=== PATIENT | male | born 1965 | race Caucasian/White ===

== ENCOUNTER 2024-01-26 11:43 | Inpatient (IN) | payer BC, MEDICAID, OTHER ==
[2024-01-26] MEDS ORDERED: Ketorolac Tromethamine 30 MG (1 mL) VIAL ONE (13:26)
[2024-01-26] MEDS ORDERED: Acetaminophen 500 MG TAB ONE (13:29)
[2024-01-26] MEDS ORDERED: Dexamethasone 10 MG/ML VIAL ONE (18:04)
[2024-01-26 18:29] LABS: #Basophils Less than 0.03 10x3/uL (0.0-0.2); %Basophils 0.3 % (0.0-1.0); %Eosinophils 0.8 % (0.0-10.0); %Lymphocytes 21.7 % (21.0-51.0); %Neutrophils 67.9 % (42.0-75.0); Hematocrit 45.2 % (42.0-52.0); Hemoglobin 15.5 g/dL (14.0-18.0); Mean Corpuscular HGB CONC 34.3 g/dL (32.0-36.0); Mean Corpuscular Hemoglobin 30.9 pg (27.0-31.0); Mean Corpuscular Volume 90.2 fL (78.0-98.0); Mean Platelet Volume 8.8 fL (7.4-10.4); Platelet Count 291 10x3/uL (130-400); RBC Distribution Width 11.3 % (11.5-14.5); Red Blood Cell (RBC) Count 5.01 mill/uL (4.70-6.10)
[2024-01-26 18:49] LABS: ALT (SGPT) 32 U/L (8-55); AST (SGOT) 29 U/L (5-34); Albumin 3.8 g/dL (3.5-5.0); Alkaline Phosphatase 62 U/L (40-110); Anion Gap 13 mmol/L (10-20); BUN (Urea Nitrogen) 11 mg/dL (8.4-25.7); Bilirubin, Total 0.5 mg/dL (0.2-1.2); Calc. Creatinine Clearance 0 mL/min (70-130); Calcium 9.3 mg/dL (7.8-10.44); Carbon Dioxide 23 mmol/L (22-29); Chloride 104 mmol/L (98-107); Estimated GFR 100; Globulin 3.2 g/dL (2.4-3.5); Glucose 87 mg/dL (70-105); Prothrombin Time 13.1 sec (12.0-14.7); Sodium 136 mmol/L (136-145)
[2024-01-26 18:50] LABS: PTT 31.8 sec (22.9-36.1)
[2024-01-26] MEDS ORDERED: Ondansetron PF 4 MG/2 ML Vial IVP PRN ×2 (19:11→21:35)
[2024-01-26] MEDS ORDERED: Ondansetron ODT 4 MG TAB SL PRN (19:11)
[2024-01-26 21:24] VITALS: BMI 27.8
[2024-01-26] MEDS ORDERED: Acetaminophen 325 MG TAB PO PRN (21:35)
[2024-01-26] MEDS ORDERED: Ondansetron ODT 4 MG TAB PO PRN (21:35)
[2024-01-26] MEDS ORDERED: Acetaminophen 650 MG Suppository PR PRN (21:35)
[2024-01-26] MEDS: Dexamethasone 4 mg/ml Vial SLOW IVP SCH (23:52)
[2024-01-27] MEDS: Levothyroxine Sodium 100 MCG TAB PO SCH (04:59)
[2024-01-27 05:26] LABS: #Basophils Less than 0.03 10x3/uL (0.0-0.2); #Eosinphils Less than 0.03 10x3/uL (0.0-0.7); %Basophils 0.2 % (0.0-1.0); %Monocytes 1.6 % (0.0-10.0); %Neutrophils 88.9 % (42.0-75.0); Hematocrit 46.6 % (42.0-52.0); Hemoglobin 15.8 g/dL (14.0-18.0); Mean Corpuscular HGB CONC 33.9 g/dL (32.0-36.0); Mean Corpuscular Hemoglobin 31.7 pg (27.0-31.0); Mean Corpuscular Volume 93.6 fL (78.0-98.0); Mean Platelet Volume 8.8 fL (7.4-10.4); Platelet Count 337 10x3/uL (130-400); RBC Distribution Width 11.4 % (11.5-14.5); Red Blood Cell (RBC) Count 4.98 mill/uL (4.70-6.10)
[2024-01-27 06:01] LABS: Anion Gap 12 mmol/L (10-20); BUN (Urea Nitrogen) 17 mg/dL (8.4-25.7); Calc. Creatinine Clearance 105 mL/min (70-130); Calcium 9.7 mg/dL (7.8-10.44); Carbon Dioxide 25 mmol/L (22-29); Chloride 103 mmol/L (98-107); Estimated GFR 85; Glucose 153 mg/dL (70-105); Potassium 4.7 mmol/L (3.5-5.1); Sodium 135 mmol/L (136-145)
[2024-01-27] MEDS: Famotidine/PF 20 mg/2ml Vial SLOW IVP SCH (08:36)
[2024-01-27] MEDS: Acetaminophen/Codeine 30-300mg Tablet PO PRN (08:41)
[2024-01-27] MEDS: Lisinopril 5 MG TAB PO SCH (08:42)
[2024-01-27] MEDS ORDERED: Vancomycin 1 GM VIAL ONE (08:50)
[2024-01-27] MEDS ORDERED: Thrombin 5000 UNITS/5 ML VIAL ONE (08:50)
[2024-01-27] MEDS ORDERED: Bacitracin Zinc Ointment 30 gm TUBE ONE (08:50)
[2024-01-27] MEDS ORDERED: Sodium Chloride 0.9% 100 ML ONE (09:57)
[2024-01-27] MEDS ORDERED: CEFAZOLIN 2 GM VIAL ONE (09:57)
[2024-01-27 10:07] LABS: Hemoglobin A1c 5.4 % (4.0-6.0)
[2024-01-27] MEDS ORDERED: Hydrocortisone Sod Succ/PF 100 mg/2 ml Vial ONE (10:19)
[2024-01-27] MEDS ORDERED: Magnesium 5 GM/10 ML VIAL ONE (10:27)
[2024-01-27] MEDS ORDERED: Albumin 5% 500 ML ONE (10:27)
[2024-01-27] MEDS ORDERED: Ketamine In 0.9 % NaCl 50 MG/5 ML SYRINGE ONE (10:35)
[2024-01-27] MEDS ORDERED: PROPOFOL 20 ML ONE ×2 (10:35→12:31)
[2024-01-27] MEDS: Famotidine 20 MG TAB PO SCH (10:42)
[2024-01-27] MEDS ORDERED: Midazolam HCl 2 mg/2 ml Vial ONE (10:45)
[2024-01-27] MEDS ORDERED: Fentanyl 250 MCG/5 ML VIAL ONE (10:46)
[2024-01-27] MEDS ORDERED: PHENYLEPHRINE-NS 100 MCG/ML 10 ML SYRINGE ONE ×3 (11:09→13:07)
[2024-01-27] MEDS ORDERED: Vecuronium 10 MG VIAL ONE (11:30)
[2024-01-27] MEDS ORDERED: Promethazine HCl 25 MG/ML VIAL IM PRN ×2 (11:52→14:40)
[2024-01-27] MEDS ORDERED: Ketorolac Tromethamine 30 MG/ML VIAL IVP PRN (11:52)
[2024-01-27] MEDS ORDERED: HYDROmorphone 2 MG/ML VIAL SLOW IVP PRN (11:52)
[2024-01-27] MEDS ORDERED: Ondansetron HCl/PF 4 MG/2 ML Vial IVP PRN (11:52)
[2024-01-27] MEDS ORDERED: fentaNYL PF 100 MCG/2 ML SYRINGE ONE (12:13)
[2024-01-27] MEDS ORDERED: SUGAMMADEX SODIUM 200 MG/2 ML VIAL ONE (12:24)
[2024-01-27] MEDS ORDERED: Ketorolac Tromethamine 30 MG (1 mL) VIAL ONE (12:35)
[2024-01-27] MEDS ORDERED: Dexamethasone 20 MG/5 ML VIAL ONE (12:35)
[2024-01-27] MEDS ORDERED: Ondansetron PF 4 MG/2 ML Vial ONE (12:35)
[2024-01-27] MEDS ORDERED: Lidocaine 2% PF 5 ML VIAL ONE (12:40)
[2024-01-27] MEDS ORDERED: Rocuronium Bromide 10 MG/ML (10ML VIAL) ONE (13:07)
[2024-01-27] MEDS ORDERED: Calcium Chloride 1 GM/10 ML Abboject SYRINGE ONE (13:07)
[2024-01-27] MEDS ORDERED: CEFAZOLIN 1 GM VIAL ONE (14:34)
[2024-01-27] MEDS ORDERED: Naloxone HCl 0.4 mg/ml Vial IV PRN (14:40)
[2024-01-27] MEDS ORDERED: diphenhydrAMINE 50 MG/ML VIAL IVP PRN (14:40)
[2024-01-27] MEDS ORDERED: diphenhydrAMINE 50 MG/ML VIAL IM PRN (14:40)
[2024-01-27] MEDS ORDERED: FENTANYL 500 MCG/10 ML VIAL 2,000 MCG in Sodium Chloride 0.9% 60 ML IV PRN (14:40)
[2024-01-27] MEDS ORDERED: Ondansetron PF 4 MG/2 ML Vial IVP PRN (14:40)
[2024-01-27] MEDS ORDERED: diphenhydrAMINE 25 MG CAP PO PRN (14:40)
[2024-01-27] MEDS ORDERED: Communication Order-Pharmacy FS SCH (14:45)
[2024-01-27] MEDS ORDERED: fentaNYL 50 mcg/mL 1 mL Vial ONE ×2 (14:55→16:00)
[2024-01-27] MEDS: Sodium Chloride 0.9% 1,000 ML IV SCH (15:30)
[2024-01-27] MEDS ORDERED: Polyethylene Glycol 3350 17 GM Packet PO PRN (15:33)
[2024-01-27] MEDS ORDERED: Benzocaine/Menthol 1 LOZ LOZ PO PRN (15:33)
[2024-01-27] MEDS ORDERED: Phenol 177 ML BOT PO PRN (15:33)
[2024-01-27] MEDS: CEFAZOLIN 2 GM in Sodium Chloride 0.9% 100 ML IVPB SCH (21:11)
[2024-01-28 06:23] LABS: #Basophils 0.03 10x3/uL (0.0-0.2); #Eosinphils Less than 0.03 10x3/uL (0.0-0.7); %Basophils 0.2 % (0.0-1.0); %Eosinophils 0.1 % (0.0-10.0); %Lymphocytes 6.7 % (21.0-51.0); %Monocytes 8.3 % (0.0-10.0); %Neutrophils 84.3 % (42.0-75.0); Hematocrit 43.5 % (42.0-52.0); Hemoglobin 14.4 g/dL (14.0-18.0); Mean Corpuscular HGB CONC 33.1 g/dL (32.0-36.0); Mean Corpuscular Volume 93.8 fL (78.0-98.0); Mean Platelet Volume 8.7 fL (7.4-10.4); Platelet Count 310 10x3/uL (130-400); RBC Distribution Width 11.5 % (11.5-14.5); Red Blood Cell (RBC) Count 4.64 mill/uL (4.70-6.10)
[2024-01-28 06:40] LABS: Anion Gap 11 mmol/L (10-20); BUN (Urea Nitrogen) 18 mg/dL (8.4-25.7); Calc. Creatinine Clearance 96 mL/min (70-130); Calcium 8.9 mg/dL (7.8-10.44); Carbon Dioxide 27 mmol/L (22-29); Chloride 104 mmol/L (98-107); Estimated GFR 76; Glucose 132 mg/dL (70-105); Magnesium 2.4 mg/dL (1.6-2.6); Potassium 4.1 mmol/L (3.5-5.1); Sodium 138 mmol/L (136-145)
[2024-01-28 06:45] LABS: Prothrombin Time 12.7 sec (12.0-14.7)
[2024-01-28 06:46] LABS: PTT 26.1 sec (22.9-36.1)
[2024-01-28] MEDS: tiZANidine HCl 4 MG TAB PO PRN (08:45)
[2024-01-28] MEDS ORDERED: Morphine 2 MG/ML VIAL SLOW IVP PRN (10:12)
[2024-01-28] MEDS: Senokot S 8.6-50 MG TAB PO SCH (14:07)
[2024-01-28] MEDS: HYDROcodone/Acetaminophen 5/325 mg Tablet PO PRN (20:03)
[2024-01-28] MEDS: Docusate 100 MG CAP PO SCH (20:06)
[2024-01-29] MEDS: Diazepam 5 MG TAB PO PRN (02:54)
[2024-01-29 06:54] LABS: Anion Gap 13 mmol/L (10-20); BUN (Urea Nitrogen) 9 mg/dL (8.4-25.7); Calc. Creatinine Clearance 122 mL/min (70-130); Calcium 9.3 mg/dL (7.8-10.44); Carbon Dioxide 25 mmol/L (22-29); Chloride 102 mmol/L (98-107); Estimated GFR 101; Glucose 118 mg/dL (70-105); Magnesium 2.1 mg/dL (1.6-2.6); Potassium 4.4 mmol/L (3.5-5.1); Sodium 136 mmol/L (136-145)
[2024-01-29] MEDS: hydrALAZINE 20 MG/ML VIAL SLOW IVP PRN (09:00)
[2024-01-29] MEDS: Morphine 4 MG/ML VIAL SLOW IVP SCH (10:19)
[2024-01-30] MEDS: HYDROcodone/Acetaminophen 5/325 mg Tablet PO PRN (02:41)
[2024-01-30 06:15] LABS: Anion Gap 10 mmol/L (10-20); BUN (Urea Nitrogen) 13 mg/dL (8.4-25.7); Calc. Creatinine Clearance 117 mL/min (70-130); Calcium 9.5 mg/dL (7.8-10.44); Carbon Dioxide 26 mmol/L (22-29); Chloride 102 mmol/L (98-107); Estimated GFR 96; Glucose 107 mg/dL (70-105); Magnesium 2.1 mg/dL (1.6-2.6); Potassium 4.3 mmol/L (3.5-5.1); Sodium 134 mmol/L (136-145)
[2024-01-30 13:29] VITALS: BP 148/83; TEMP 97.7
== END 2024-01-30 16:21 | disposition home or self-care (01) | DRG 454 ==
LOC: ERS 11:43 → SURG B 19:43 → OBSVTOIN 01-27 15:35
PROVIDERS: ADMIT Student in an Organized Health Care Education/Training Program; ATTEND Hospitalist
PROC: 0RG10A0 Fusion of Cervical Vertebral Joint with Interbody Fusion Device, Anterior Approach, Anterior Column, Open Approach (ICD-10-PCS; principal; 2024-01-27)
PROC: 0RG1071 Fusion of Cervical Vertebral Joint with Autologous Tissue Substitute, Posterior Approach, Posterior Column, Open Approach (ICD-10-PCS; 2024-01-27)
PROC: 01N10ZZ Release Cervical Nerve, Open Approach (ICD-10-PCS; 2024-01-27)
PROC: 00NW0ZZ Release Cervical Spinal Cord, Open Approach (ICD-10-PCS; 2024-01-27)
PROC: 30233J1 Transfusion of Nonautologous Serum Albumin into Peripheral Vein, Percutaneous Approach (ICD-10-PCS; 2024-01-27)
PROC: 0RB30ZZ Excision of Cervical Vertebral Disc, Open Approach (ICD-10-PCS; 2024-01-27)
DX: M48.02 Spinal stenosis, cervical region (principal); G95.9 Disease of spinal cord, unspecified; Z59.00 Homelessness unspecified; M54.12 Radiculopathy, cervical region; E03.9 Hypothyroidism, unspecified; R73.03 Prediabetes; M46.82 Other specified inflammatory spondylopathies, cervical region; Z88.1 Allergy status to other antibiotic agents; Z79.890 Hormone replacement therapy; Z79.2 Long term (current) use of antibiotics
CPT/HCPCS: 36415; 72125; 80048; 80053; 83036; 83735; 85025; 85610; 85730; 86850; 86900; 86901; 93005; 96374; 96375; 96376; C1713; C1889; G0378; J0360; J0690; J1100; J1720; J1885; J2001; J2250; J2272; J2405; J2704; J3010; J3370; J3475; J3490; J7030; P9045